=== PATIENT | male | born 1990 | race Asian ===

== ENCOUNTER 2020-12-11 16:04 | Emergency (ER) | payer SELFPAY ==
[~2020-12-11] VITALS: Ht 170.2 cm; Wt 80.1 kg
[2020-12-11 16:10] VITALS: BP 129/76
--- NOTE | 2020-12-11 16:16 | NUR ---
PT AMBULATES FROM TRIAGE TO ROOM WITH STEADY GAIT FOR D/C HOME.
== END 2020-12-11 17:24 ==
LOC: ED 16:31
DX: M26.601 Right temporomandibular joint disorder, unspecified (principal); Z87.891 Personal history of nicotine dependence
CPT/HCPCS: 99283; 99284